=== PATIENT | female | born 1985 ===

== ENCOUNTER 2021-01-31 13:17 | Outpatient (REF) | payer MEDICAID, SELFPAY ==
[2021-01-31 16:14] LABS: TSH (W/Ref FT4) 1.48 uIU/mL (0.36-3.74)
[2021-02-01 15:26] LABS: Chlamydia Result Negative (Negative); GC Result Negative (Negative)
== END 2021-01-31 13:18 | disposition home or self-care (01) ==
LOC: NCHCN 13:17
PROVIDERS: PCP Family Medicine; Visit Provider Family Medicine
DX: R19.7 Diarrhea, unspecified (principal); Z11.3 Encounter for screening for infections with a predominantly sexual mode of transmission; Z83.49 Family history of other endocrine, nutritional and metabolic diseases
CPT/HCPCS: 87491; 87591; 84443

== ENCOUNTER 2022-01-23 10:32 | Outpatient (REF) | payer MEDICAID, SELFPAY ==
[2022-01-23 14:37] LABS: Abs Immature Grans 0.02 10^3/uL (0.0-0.06); Absolute Basophil Count 0.05 10^3/uL (0.0-0.2); Absolute Eosinophil Count 0.15 10^3/uL (0.0-0.7); Absolute Lymphocyte Count 1.27 10^3/uL (1.2-3.4); Absolute Monocyte Count 0.43 10^3/uL (0.1-0.8); Absolute Neutrophil Count 2.99 10^3/uL (1.2-6.7); Eosinophils % 3.1; HCT 36.5 % (36.0-46.0); HGB 11.9 g/dL (11.2-15.7); Immature Grans % 0.4; Lymphocytes % 25.9; MCH 28.9 pg (27.0-33.0); MCHC 32.6 % (32.0-36.0); MCV 89 fL (80-95); MPV 10.1 fL (8.0-11.0); Monocytes % 8.8; Neutrophils % 60.8; Platelet Count 326 10^3/uL (130-400); RBC 4.12 10^6/uL (3.93-5.22); RDW-SD 39.2 fL; WBC 4.91 10^3/uL (4.4-10.8)
== END 2022-01-23 10:33 | disposition home or self-care (01) ==
LOC: NCHCN 10:32
PROVIDERS: PCP Family Medicine; Visit Provider Nurse Practitioner Family
DX: Z86.2 Personal history of diseases of the blood and blood-forming organs and certain disorders involving the immune mechanism (principal)
CPT/HCPCS: 85025

== ENCOUNTER 2024-07-21 11:29 | Outpatient (REF) | payer MEDICAID, SELFPAY ==
[2024-07-21 22:06] LABS: Calculated LDL 165 mg/dL (<100); Cholesterol 251 mg/dL (<200); HDL Cholesterol 60 mg/dL (>or=50); Triglyceride 130 mg/dL (<150)
== END 2024-07-21 11:30 | disposition home or self-care (01) ==
LOC: NCHCN 11:29
PROVIDERS: PCP Family Medicine; Visit Provider Family Medicine
DX: Z13.220 Encounter for screening for lipoid disorders (principal)
CPT/HCPCS: 80061